=== PATIENT | male | born 1990 | race Caucasian/White ===

== ENCOUNTER 2018-04-02 02:34 | Emergency (ER) | payer OTHER ==
[~2018-04-02] VITALS: Ht 188 cm; Wt 99.0 kg
--- NOTE | 2018-04-02 02:44 | NUR ---
PT. C/O LLQ ABD PAIN / CONSTANT DESCRIBED CRAMPING. PT. APPEARS TO BE IN MODERATE DISTRESS. DENIES UINARY SYMPTOMS. LAST BM IMMEDIATELY CIRCUIT [employer] MAGISTRATE AND "NORMAL". DOES REPORT 5-6 PINTS OF ETOH USE TONIGHT. [place] PECK IN TO EVAL PT. AND DISCUSS POC.
[2018-04-02] MEDS ORDERED: ONDANSETRON 2MG/ML, 2ML ONE (02:54)
[2018-04-02] MEDS ORDERED: KETOROLAC 30 MG/1 ML ONE (02:54)
[2018-04-02] MEDS ORDERED: HYDROmorphone 1 MG/ML, 1ML ONE (02:55)
[2018-04-02] MEDS ORDERED: ONDANSETRON 2MG/ML, 2ML IVPush ONE (03:00)
[2018-04-02] MEDS ORDERED: HYDROmorphone 1 MG/ML, 1ML IVPush PRN (03:00)
[2018-04-02] MEDS ORDERED: KETOROLAC 30 MG/1 ML IVPush ONE (03:00)
[2018-04-02 03:04] LABS: BASOPHILS # (AUTO) 0.02 x10^3/uL (0-0.1); BASOPHILS % (AUTO) 0 % (0-1); EOSINOPHILS # (AUTO) 0.16 x10^3/uL (0-0.4); EOSINOPHILS % (AUTO) 2 % (1-7); LYMPHOCYTES # (AUTO) 2.25 x10^3/uL (1-3.4); LYMPHOCYTES % (AUTO) 32 % (22-44); MD NO; MEAN CORPUSCULAR HEMOGLOBIN 30.1 pg (27.5-34.5); MEAN CORPUSCULAR HGB CONC 33.3 g/dL (33.2-36.2); MEAN CORPUSCULAR VOLUME 90.5 fL (81-97); MEAN PLATELET VOLUME 8.2 fL (7.4-10.4); MONOCYTES # (AUTO) 0.35 x10^3/uL (0.2-0.8); MONOCYTES % (AUTO) 5 % (2-9); NEUTROPHILS # (AUTO) 4.29 x10^3/uL (1.8-6.8); NEUTROPHILS % (AUTO) 61 % (42-75); PLATELET COUNT 310 x10^3/uL (130-400); RED BLOOD COUNT 5.16 x10^6/uL (4.38-5.82); RED CELL DISTRIBUTION WIDTH 13.1 % (9.4-14.8)
--- NOTE | 2018-04-02 03:05 | NUR ---
IV STARTED, PT. MEDICATED PER APR, LABS DRAWN. PT. AWAITING CT SCAN. POC DISCUSSED WITH PT. AND GIRLFRIEND AT BS. PT. 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 PT. NOW RESTING ON GURNEY WITH EYES CLOSED. NO LONGER GROANING IN PAIN. PT. REPORTS "IT'S STILL THERE BUT NOT BAD". CALL LIGHT IN REACH. ALL SAFETY MEASURES OBSERVED.
[2018-04-02 03:13] LABS: ALANINE AMINOTRANSFERASE 41 U/L (12-78); ALBUMIN 4.6 g/dL (3.4-5.0); ANION GAP 9 mmol/L (5-15); CALCIUM 8.7 mg/dL (8.5-10.1); CHLORIDE 108 mmol/L (98-107); CREATININE 1.24 mg/dL (0.7-1.3)
[2018-04-02 03:16] LABS: ALKALINE PHOSPHATASE 64 U/L (45-117); BILIRUBIN,TOTAL 0.4 mg/dL (0.2-1.0); TOTAL PROTEIN 8.3 g/dL (6.4-8.2)
--- NOTE | 2018-04-02 03:30 | NUR ---
PT. RESTING ON GURNEY WITH NADN. REPORTS PAIN DOWN TO 1/10. PT. REMAINS AWARE OF NEED FOR UA BUT UNABLE TO PROVIDE AT THIS TIME. PT. AWARE OF NPO STATUS WELL. GF REMAINS AT BS FOR SUPPORT. CT RESULTS PENDING.
--- NOTE | 2018-04-02 03:39 | NUR ---
IVF INFUSING PER ORDER. DR. BOYD IN TO DISCUSS POC WITH PT. AND GF.
[2018-04-02] MEDS ORDERED: SODIUM CHLORIDE 0.9% 1,000ML IVBOLUS ONE (04:00)
--- NOTE | 2018-04-02 04:12 | NUR ---
IVF COMPLETED. PT. DRINKING WATER PER OK FROM DR. BOYD. PT. ATTEMPTING TO PROVIDE UA AT THIS TIME.
--- NOTE | 2018-04-02 04:34 | NUR ---
URINE SAMPLE PROVIDED AND SENT TO LAB.
[2018-04-02 04:47] LABS: MICROSCOPIC AUTO
[2018-04-02 04:56] LABS: AMPHETAMINE SCREEN, URINE Negative (Negative); BARBITURATE SCREEN, URINE Negative (Negative); BENZODIAZEPINE SCREEN, URINE Negative (Negative); CANNABINOID SCREEN, URINE Positive (Negative); COCAINE SCREEN, URINE Negative (Negative); CULTURE INDICATED? YES; METHADONE SCREEN, URINE Negative (Negative); OPIATE SCREEN, URINE Positive (Negative)
[2018-04-02] MEDS ORDERED: TAMSULOSIN 0.4 MG CAP.ER.24H PO ONE (05:00)
[2018-04-02] MEDS ORDERED: TAMSULOSIN 0.4 MG CAP.ER.24H ONE (05:16)
[2018-04-02 05:18] VITALS: BP 133/80
== END 2018-04-02 05:21 | disposition home or self-care (01) ==
LOC: ED 05:15
DX: N20.0 Calculus of kidney (principal); N23 Unspecified renal colic; R11.2 Nausea with vomiting, unspecified; F10.129 Alcohol abuse with intoxication, unspecified
CPT/HCPCS: 36415; 74176; 80053; 80307; 81001; 83690; 85025; 87086; 96361; 96374; 96375; 99284; J1170; J1885; J2405; J7030